=== PATIENT | female | born 1955 | race Caucasian/White ===

== ENCOUNTER → 2018-12-05 | Outpatient (CLI) | payer OTHER, SELFPAY ==
[2018-12-05 12:58] LABS: Protein, Urine (Random) 45.6 mg/dL (<11.9); Protein:Creat Ratio 1407 mg/g CRE (0-200)
== END | disposition home or self-care (01) ==
PROVIDERS: Family Provider Internal Medicine Nephrology; PCP Internal Medicine Nephrology; Visit Provider Internal Medicine Nephrology
DX: N18.4 Chronic kidney disease, stage 4 (severe) (principal)
CPT/HCPCS: 82570; 84156

== ENCOUNTER → 2019-11-30 | Outpatient (CLI) | payer MEDICARE, SELFPAY ==
--- NOTE | 2019-11-30 10:45 | MRI_ITS ---
STUDY: MRI BRAIN WITHOUT CONTRAST REASON FOR EXAM: Female, 64 years old. Vertigo,imbalance TECHNIQUE: Standardized multiplanar fat and water weighted pulse sequences were obtained. COMPARISON: None. FINDINGS: There is mild cerebral atrophy with widening of the extra-axial spaces and ventricular dilatation. There are a limited number of small white matter hyperintensities, distributed throughout the deep white matter tracts of the cerebral hemispheres, consistent with mild chronic white matter ischemic changes. Normal bilateral basal ganglia. Normal thalami. There is no extra-axial fluid accumulation. Normal flow voids within the major intracranial circulation suggesting patency by spin echo criteria. Normal sella turcica, pituitary gland, infundibular stalk, optic chiasm and hypothalamus. Normal tectal plate and pineal gland. Normal midbrain, jo ann and medulla. Normal cerebellum. Normal basal cisterns. There is fluid signal at the left mastoid MRI/Brain without Contrast IMPRESSION: No evidence for acute intracranial abnormality or masses. Left maxillary disease. Electronically Signed: Harmeet Grullon MD at 8:13 EDT Tel , Service support ,
== END | disposition home or self-care (01) ==
PROVIDERS: PCP Family Medicine; Referring Provider Family Medicine; Visit Provider Family Medicine
DX: R27.0 Ataxia, unspecified (principal); R43.2 Parageusia; N28.9 Disorder of kidney and ureter, unspecified; F40.240 Claustrophobia; R63.4 Abnormal weight loss
CPT/HCPCS: 70551